=== PATIENT | male | born 1975 | race Caucasian/White ===

== ENCOUNTER → 2024-05-25 | Outpatient (CLI) | payer OTHER, SELFPAY ==
--- NOTE | 2024-05-25 10:20 | RAD_ITS ---
HISTORY: Pain in thoracic spine, Radiculopathy, cervical region. TECHNIQUE: XR Spine Cervical 4 or 5 Views. COMPARISON: None. FINDINGS: VERTEBRAE: Vertebral body heights maintained. No acute fracture identified. Mild degenerative osteophytes of the vertebral bodies and posterior elements. ALIGNMENT: No significant anterior or posterior subluxation. Preservation of the cervical lordosis. INTERVERTEBRAL DISCS: Disc heights preserved. SOFT TISSUES: No significant prevertebral soft tissue swelling. RAD/Cerv Spine 4 or 5 Views IMPRESSION: No acute fracture or dislocation identified in the cervical spine. Very mild degenerative change. Electronically Signed: Gill Villegas MD at 10:21 EST ,
--- NOTE | 2024-05-25 10:20 | RAD_ITS ---
HISTORY: Pain in thoracic spine. TECHNIQUE: XR Spine Thoracic 3 Views. COMPARISON: None. FINDINGS: VERTEBRAE: Vertebral body heights maintained. No acute fracture identified. ALIGNMENT: No significant anterior or posterior subluxation. INTERVERTEBRAL DISCS: Degenerative osteophytes with mild intervertebral disc space narrowing of the mid thoracic spine. SOFT TISSUES: Unremarkable paraspinal soft tissues. RAD/Thoracic Spine 3 Views IMPRESSION: No acute fracture or dislocation identified in the thoracic spine. Mild degenerative change of the mid thoracic spine. Electronically Signed: Gill Villegas MD at 10:22 EST ,
== END | disposition home or self-care (01) ==
PROVIDERS: Referring Provider Chiropractor Orthopedic; Visit Provider Chiropractor Orthopedic
DX: M99.01 Segmental and somatic dysfunction of cervical region (principal); M99.02 Segmental and somatic dysfunction of thoracic region; M54.12 Radiculopathy, cervical region
CPT/HCPCS: 72050; 72072